=== PATIENT | male | born 1965 | race Caucasian/White ===

== ENCOUNTER → 2022-02-14 09:35 | Outpatient (BNVA) | payer BC, SELFPAY | PROVIDERS: Family Provider Family Medicine; Referring Provider Family Medicine; Visit Provider Dermatology | DX: L40.0 Psoriasis vulgaris (principal); Z79.899 Other long term (current) drug therapy | CPT/HCPCS: 36415; 80053; 85025; 86480; 86705; 86706; 86709; 86803; 87340; 87806 ==

== ENCOUNTER 2022-04-12 10:10 | Outpatient (CLI) | payer BC, SELFPAY ==
--- NOTE | 2022-04-12 10:28 | XR_ITS ---
WS: [id number] Exam: XR foot LT min 3V* 09270 Date/Time of Exam: 04/12/2022 10:28 AM Reason For Exam: PAIN OF L HEEL/PAIN IN L FOOT No fracture or dislocation. No soft tissue foreign bodies. Plantar heel spur is noted. XR/XR foot LT min 3V* 73256 IMPRESSION: 1. No fracture. Plantar heel spur.
== END 2022-04-12 10:11 | disposition home or self-care (01) ==
PROVIDERS: PCP Family Medicine; Visit Provider Family Medicine
DX: M79.672 Pain in left foot (principal); M77.32 Calcaneal spur, left foot
CPT/HCPCS: 73630

== ENCOUNTER 2024-02-27 10:16 | Outpatient (CLI) | payer OTHER, SELFPAY ==
[2024-03-02 16:00] LABS: Quantiferon Nil 0.03 IU/mL; Quantiferon Plus TB1 <0.00 IU/mL; Quantiferon Plus TB2 <0.00 IU/mL; Quantiferon TB Gold NEGATIVE (NEGATIVE)
== END 2024-02-27 10:17 | disposition home or self-care (01) ==
LOC: LAB 10:18
PROVIDERS: PCP Family Medicine; Visit Provider Nurse Practitioner Family
DX: I40.0 Infective myocarditis (principal)
CPT/HCPCS: 86480

== ENCOUNTER 2024-06-28 06:01 | Day surgery (SDC) | payer OTHER, SELFPAY ==
[2024-06-28 06:16] VITALS: PULSE 90; RESP 18; TEMP 36.1; O2SAT 97; BMI 31.5
[2024-06-28] MEDS: sodium chloride 0.9% 1,000 ML 30 ML IV (06:24)
--- NOTE | 2024-06-28 06:59 | P.ANESASSM_ITS ---
Pre-Anesthetic Assessment Height/Weight: Height 1.78 m Weight 99.79 kg Temp Pulse Resp Pulse Ox O2 Del Method 97 F L 90 18 97 Room Air 06/28/24 06:16 06/28/24 06:16 06/28/24 06:16 06/28/24 06:16 06/28/24 06:16 Preop Diagnosis: screening Operation Date: 06/28/24 07:20 Proposed Procedures p Colonoscopy 16278, G0105, Z12.11(Not Applicable) - Ryan Schafer MD Familial anesthetic complications: none Was Beta Jules taken within 24 hours: N/A Was Clonidine taken within 24 hours: N/A Last intake: Intake Last Liquid Date 06/27/24 Last Liquid Time 20:00 Last Solid Date 06/26/24 Last Solid Time 18:00 Social No alcohol and No tobacco Exam alert, oriented x 3, clear to auscultation bilaterally and regular rate & rhythm Airway Submandibular: within normal limits Cervical ROM: within normal limits Mallampati: Class II Dentition: full History/ROS No significant history except as noted and No significant complaints Pulmonary None reported CV/HEM None reported None reported Hepatic None reported GI Gastroesophageal Reflux Disease Metabolic Thyroid Disease [facility] [place] None reported Neuropsych None reported Anesthetic Plan ASA status: 2 Anesthesia: MAC Risk of > 500 ml blood loss (7ml/kg in children): No Medications/Allergies Home Medications Medication Instructions Recorded Confirmed Last Taken Type pantoprazole 40 mg tablet,delayed 40 mg PO DAILY 02/14/22 06/24/24 06/26/24 History release sildenafil 25 mg tablet 20 mg PO DAILY PRN Sexual Activity 02/14/22 06/24/24 Unknown History ixekizumab 80 mg/mL subcutaneous 80 mg SUBCUT .q 4 weeks #2 mL 05/19/23 06/24/24 06/08/24 Rx auto-injector (Taltz Autoinjector (2 Pack)) Allergies Allergy/AdvReac Type Severity Reaction Status Date / Time No Known Allergies Allergy Verified 06/24/24 08:46 Current Medications Generic Name Dose Route Start Last Admin Trade Name Freq PRN Reason Stop Dose Admin Sodium Chloride 1,000 mls @ 30 mls/hr 06/28/24 06:15 06/28/24 06:24 Sodium Chloride 0.9% IV 30 mls/hr .Q24H YAMILE Administration PFSH Anesthesia Medical History No pertinent past medical history Psoriasis Surgical History (Updated 06/08/24 @ 13:05 by MAYUR Patel) No pertinent past surgical history Status post knee surgery Family History (Updated 06/08/24 @ 13:00 by MAYUR Patel) Mother Colon cancer Social History Smoking and tobacco/nicotine status: never used tobacco/nicotine Alcohol intake: never Substance/Drug Use: never Data Anesthesia Cardiac Studies: No Data to Display
--- NOTE | 2024-06-28 07:33 | W.PM.OPSFHP ---
Same Day Surgery H&P Indication for Procedure/HPI DATE OF PROCEDURE: June 28, 2024 CHIEF COMPLAINT/INDICATIONFOR SURGICAL PROCEDURE: Screening colonoscopy PREOP DIAGNOSIS: screening PLANNED PROCEDURE: Operation Date: 06/28/24 07:20 Proposed Procedures p Colonoscopy 96103, G0105, Z12.11(Not Applicable) - Ryan Schafer MD Medications/Allergies* Home Medications Medication Instructions Recorded Confirmed Type pantoprazole 40 mg tablet,delayed 40 mg PO DAILY 02/14/22 06/24/24 History release sildenafil 25 mg tablet 20 mg PO DAILY PRN Sexual Activity 02/14/22 06/24/24 History Allergies/Adverse Reactions Allergy/AdvReac Type Severity Reaction Status Date / Time No Known Allergies Allergy Verified 06/24/24 08:46 Current Medications: Generic Name Dose Route Start Last Admin Trade Name Freq PRN Reason Stop Dose Admin Sodium Chloride 1,000 mls @ 30 mls/hr 06/28/24 06:15 06/28/24 06:24 Sodium Chloride 0.9% IV 30 mls/hr .Q24H YAMILE Administration Pertinent History/Comorbid Conditions* Medical History (Updated 06/06/22 @ 14:32 by Melissa Wood DO) No pertinent past medical history Psoriasis Surgical History (Updated 06/06/22 @ 14:32 by Melissa Wood DO) No pertinent past surgical history Status post knee surgery Family History (Updated 06/08/24 @ 13:00 by MAYUR Patel) Colon cancer Mother Social History Smoking and tobacco/nicotine status: never used tobacco/nicotine Alcohol intake: never Substance/Drug Use: never Pertinent Exam Findings alert, oriented x 3, regular rate & rhythm and procedure specific exam findings Abdomen soft, NT, ND Recommendations Surgery/Procedure today Other Plans: Colonoscopy today Coding Level of Care Code Acute Code for Chg Fwd Time Spent (min) 30
[2024-06-28 08:25] VITALS: BP 103/68; PULSE 85; RESP 16; TEMP 36.3; O2SAT 92
[2024-06-28 08:46] VITALS: BP 104/66; PULSE 74; RESP 16; O2SAT 99
--- NOTE | 2024-06-28 08:50 | ANE.PACU2 ---
Inpatient post-anesthesia follow up: Airway intact: Yes Vital signs: Temperature 97.4 F Pulse Rate 74 Respiratory Rate 16 Blood Pressure 104/66 Pulse Oximetry 99 Oxygen Delivery Me thod Room Air Oxygen Flow Rate 6 Fraction of Inspir ed Oxygen Hydration adequate: Yes Nausea and vomiting: No Pain level: 1 Mental status: Baseline
== END 2024-06-28 08:53 | disposition home or self-care (01) ==
PROVIDERS: PCP Family Medicine; Visit Provider Student in an Organized Health Care Education/Training Program
PROC: 0DJD8ZZ Inspection of Lower Intestinal Tract, Via Natural or Artificial Opening Endoscopic (ICD-10-PCS; CPT 45378; principal; 2024-06-28 07:20)
DX: Z12.11 Encounter for screening for malignant neoplasm of colon (principal); K63.5 Polyp of colon; K57.30 Diverticulosis of large intestine without perforation or abscess without bleeding
CPT/HCPCS: 45380; 45385; 88305; J2704; J7030

== ENCOUNTER 2025-03-01 14:15 | Outpatient (CLI) | payer OTHER, SELFPAY | END 2025-03-01 14:16 | disposition home or self-care (01) | PROVIDERS: PCP Family Medicine; Visit Provider Nurse Practitioner Family | DX: L40.0 Psoriasis vulgaris (principal) | CPT/HCPCS: 36415; 86480 ==